=== PATIENT | male | born 1995 | race African-American/Black ===

== ENCOUNTER 2018-11-25 16:59 | Emergency (ER) | payer OTHER ==
[~2018-11-25] VITALS: Ht 185.4 cm; Wt 100.0 kg
[2018-11-25 17:00] VITALS: BP 118/58
--- NOTE | 2018-11-25 17:52 | REP ---
Clinical: Trauma. Technique: AP, lateral, bilateral oblique views of the right ankle. Findings: Diffuse lateral soft tissue swelling is appreciated. A small avulsion fracture of the tip of the medial malleolus cannot be excluded. No other fracture is appreciated. Ankle mortise is intact. Impression: Significant anterolateral swelling. Cannot exclude small chip fracture of the medial malleolus. Electronically Signed by Stefan Oleary MD 11/25/2018 05:43 P
--- NOTE | 2018-11-26 07:42 | ED PDOC ---
Post-Departure Follow-Up jorge hawkins RN asked to call pt to relay formal report of ankle xray, to martha lee pt to fu w ncog, wear splint and use crutches as previously prescribed Parker Terrell MD Nov 26, 2018 07:42
== END 2018-11-25 18:17 | disposition home or self-care (01) ==
LOC: M ED 16:59
DX: S93.401A Sprain of unspecified ligament of right ankle, initial encounter (principal); X50.9XXA Other and unspecified overexertion or strenuous movements or postures, initial encounter; Y92.018 Other place in single-family (private) house as the place of occurrence of the external cause